=== PATIENT | female | born 1990 | race Caucasian/White ===

== ENCOUNTER 2021-04-03 19:35 | Emergency (ER) | payer MEDICAID, SELFPAY ==
[2021-04-03 19:36] VITALS: BP 120/90; PULSE 104; RESP 18; TEMP 36.3; O2SAT 99; BMI 43.0
[2021-04-03 19:38] VITALS: BP 120/90; PULSE 104; RESP 18; TEMP 36.3; O2SAT 99
--- NOTE | 2021-04-03 20:15 | EX.ED.DYSGE1 ---
HPI History of Present Illness Chief Complaint: Abscess Informant: patient Onset/Context/Timing Onset: Yesterday Context: Gradual Onset Timing: Continuous Quality: Tender swollen area Location: Left perineum Current Severity: Moderate Maximum Severity: Moderate Worsened by: Touching the area Relieved by: leaving it alone Associated Symptoms Associated Symptoms: no systemic symptoms or discharge spontaneously Narrative Narrative: Patient feels like she has another abscess in her perineum that has developed spontaneously. She has had these before in this area. Not a diabetic. No systemic symptoms, fevers, chills. No spontaneous drainage. PFSH PFS Medical History Anxiety Depression Gastritis Home Medications cariprazine [Vraylar] 3 mg PO DAILY 04/03/21 [History Last Taken Unknown] sertraline [Zoloft] 200 mg PO DAILY 04/03/21 [History Last Taken Unknown] sulfamethoxazole-trimethoprim [Bactrim DS] 1 tab PO BID #20 tab 04/03/21 [Rx Last Taken Unknown] Allergy/AdvReac Type Severity Reaction Status Date / Time narcotics AdvReac Other Uncoded 04/03/21 20:07 Social History Smoking Status: Current every day smoker ROS ROS ED Constitutional Constitutional ED: Denies chills or fever(s) Integumentary Reports abscess; Denies rash Neurologic Neurologic: Denies headache(s), paresthesias or weakness EXAM Physical Exam Const Vital Signs: 04/03/21 19:36 04/03/21 19:38 Temperature 97.3 F L 97.3 F L Temperature Source Temporal Temporal Pulse Rate 104 H 104 H Respiratory Rate 18 18 Blood Pressure 120/90 H 120/90 H Blood Pressure Mean 100 100 Pulse Ox 99 99 Oxygen Delivery Method Room Air Room Air Positive well nourished, well developed and obese General Appearance ED: well developed and NAD Nutritional Appearance: obese HEENT Reports moist mucous membranes Negative for trauma Narrative: And perineum there is a 2 cm cutaneous abscess that is pointing and no spontaneous drainage is appreciated. It is very tender and erythematous without surrounding cellulitis. It is close to her labia majora but I do not think it is on it. The exam is limited by obesity. Neuro oriented x3 and CN's II-XII intact bilaterally Sensorium / Orientation: alert Motor Exam: strength 5/5 throughout Psych mental status grossly normal and thought process normal Skin no rashes or lesions noted Skin Narrative: 2 cm cutaneous abscess left perineum MDM MDM MDM Narrative Medical decision making narrative: I&D was performed after verbal consent. Large amount of purulent material was expressed. Patient was started on Bactrim here tonight, and given a prescription. Discussed reasons to return. Procedures Other Procedures Procedure(s): Simple incision and drainage cutaneous abscess, left labia majora: Locally anesthetized with plain 1% lidocaine 9 cc after prepping with isopropanol. Incised centrally with a #11 blade, large amount of purulent material was expressed. The cavity was deloculated 2 separate times, irrigated with saline, and dressed with a clean dry dressing with bacitracin. Tolerated well no complications. Discharge Plan Triage Chief Complaint: Abscess ED Provider: Tucker Lara Dx/Rx/DC Orders Clinical Impression: Abscess of left genital labia Instructions: ED Abscess Incision And Drainage Prescriptions: New sulfamethoxazole-trimethoprim [Bactrim DS] 800-160 mg tablet 1 tab PO BID Qty: 20 RF: 0 No Action sertraline [Zoloft] 100 mg Tablet 200 mg PO DAILY RF: 0 Vraylar 3 mg Capsule 3 mg PO DAILY RF: 0 Primary Care Provider: Goldie Carlos Referrals: Goldie Carlos MD [Primary Care Provider] - 3-5 Days if not improving (Or return to ER if worsening) Disposition Disposition: Home, self care
[2021-04-03] MEDS: Smz/Tmp Ds Tablet 1 TABLET PO (20:24)
[2021-04-03] MEDS: Lidocaine 1% (20 ml mdv) 20 ML Vial INFILT (20:24)
[2021-04-03 22:03] VITALS: O2SAT 98
== END 2021-04-03 22:04 | disposition home or self-care (01) ==
PROVIDERS: Emergency Provider Emergency Medicine; PCP Internal Medicine
DX: N76.4 Abscess of vulva (principal); F41.9 Anxiety disorder, unspecified; F32.9 Major depressive disorder, single episode, unspecified; F17.200 Nicotine dependence, unspecified, uncomplicated; E66.9 Obesity, unspecified; Z79.899 Other long term (current) drug therapy
CPT/HCPCS: 56405; 99284

== ENCOUNTER 2021-05-25 11:38 | Emergency (ER) | payer MEDICAID, SELFPAY ==
[2021-05-25 11:39] VITALS: BP 154/84; PULSE 90; RESP 14; TEMP 35.9; O2SAT 97; BMI 45.7
--- NOTE | 2021-05-25 11:52 | EDS_ITS ---
HPI History of Present Illness Chief Complaint: Lower Extremity Injury Informant: patient Narrative Narrative: 31-year-old female states that yesterday she was helping somebody get baptized and she was going down into the dunk tank. Her left foot slipped on wet front of her and her right leg hyperextended backwards. She notes injury to the right fourth toe and to her thigh. She has been able to bear weight but painfully. [facility] Medical History Anxiety Depression Gastritis Home Medications cariprazine [Vraylar] 3 mg PO DAILY 04/03/21 [History Last Taken Unknown] sertraline [Zoloft] 200 mg PO DAILY 04/03/21 [History Last Taken Unknown] Allergy/AdvReac Type Severity Reaction Status Date / Time narcotics AdvReac Other Uncoded 05/25/21 11:39 Social History (Updated 05/25/21 @ 11:[address] Nav Gold DO) Smoking Status: Current every day smoker tobacco type: cigarettes and e- cigarettes substance use type: does not use ROS ROS ED Constitutional Constitutional ED: Denies chills or weight loss Eyes Eyes: Denies change in vision or diplopia ENT ENT ED: Denies ear pain, rhinorrhea or sore throat Cardiovascular Cardiovascular: Denies chest pain, orthopnea, palpitations or racing heartbeat Respiratory/Chest Respiratory/Chest: Denies cough, dyspnea or orthopnea Gastrointestinal Gastrointestinal: Denies abdominal pain, diarrhea, nausea or vomiting Genitourinary Genitourinary ED: Denies dysuria, hematuria or urinary frequency Musculoskeletal Musculoskeletal: Reports other Details: See history of present illness ; Denies arthralgias or myalgias Integumentary Denies abscess or rash Neurologic Neurologic: Denies headache(s) or weakness Psychiatric Psychiatric: Denies anxiety, depression, suicidal ideation or suicidal thoughts Endocrine Endocrinology: Denies polydipsia, polyphagia or polyuria Allergic/Immunologic Allergic/Immunologic ED: Denies mouth swelling, tongue swelling or urticaria EXAM Physical Exam Const Vital Signs: 05/25/21 11:39 Temperature 96.7 F L Temperature Source Temporal Pulse Rate 90 Respiratory Rate 14 Blood Pressure 154/84 H Blood Pressure Mean 107 Pulse Ox 97 Oxygen Delivery Method Room Air Positive well nourished, well developed and obese General Appearance ED: well developed Nutritional Appearance: obese HEENT Reports normocephalic, head/scalp atraumatic and moist mucous membranes Eyes PERRL and EOMs intact bilaterally Neck no lymphadenopathy, supple and no JVD Resp normal respiratory effort and clear to auscultation bilaterally Cardio regular rate, regular rhythm and no murmurs GI normal to inspection, nondistended, normoactive bowel sounds and non-tender Palpation: soft Back/Spine no CVA tenderness and normal ROM Extremity Extremity Narrative: Patient has swelling and ecchymosis to the right fourth toe . She has tenderness palpation over the anterior thigh musculature. General Extremety ED: Negative for edema General Extremity: Negative for edema Neuro oriented x3 and CN's II-XII intact bilaterally Sensorium / Orientation: alert Motor Exam: strength 5/5 throughout Psych mental status grossly normal Mood & Affect: Negative for depressed or tearful Skin no rashes or lesions noted and no wounds MDM MDM MDM Narrative Medical decision making narrative: My interpretation of the plain films of the right foot is no acute fracture. Radiology concurs. My interpretation of the plain films of the right femur is no acute fracture. At this point patient will be given a postop shoe directions for ice and anti-inflammatories. Follow-up 10 to 14 days if not improved Radiography Diagnostic Testing: Radiology Impression Foot X-Ray 05/25/21 12:05 IMPRESSION: No demonstrated fracture. Electronically Signed: Jesus Nam MD at 12:29 EDT Tel , Service support , Discharge Plan Triage Chief Complaint: Lower Extremity Injury ED Provider: Nav Gold Dx/Rx/DC Orders Clinical Impression: Muscle strain of right thigh, Sprain of toe, fourth, right Prescriptions: No Action sertraline [Zoloft] 100 mg Tablet 200 mg PO DAILY RF: 0 Vraylar 3 mg Capsule 3 mg PO DAILY RF: 0 Primary Care Provider: Goldie Carlos Referrals: Goldie Carlos MD [Primary Care Provider] - 10-14 Days if not better Disposition Disposition: Home, Self Care
--- NOTE | 2021-05-25 12:05 | RAD_ITS ---
STUDY: X-RAY - RIGHT FOOT CLINICAL: Pain, swelling and discoloration of the fourth toe, right foot injury. TECHNIQUE: 3 view(s) of the foot. COMPARISON: None. FINDINGS: Normal talus, calcaneus, and tarsal bones. There is an os trigonum. Normal visualized subtalar, talonavicular, calcaneocuboid, tarsal and tarsometatarsal articulations. Normal metatarsi. Normal metatarsophalangeal joint of the great toe. Normal tibial and fibular sesamoid bones. Normal interphalangeal joint of the great toe. Normal phalanges of the great toe. Normal second through fifth metatarsophalangeal joints. Normal interphalangeal joints and phalanges of the lesser toes. The soft tissue structures are unremarkable. RAD/Foot min 3 Views IMPRESSION: No demonstrated fracture. Electronically Signed: Jesus Nam MD at 12:29 EDT Tel , Service support ,
--- NOTE | 2021-05-25 12:05 | RAD_ITS ---
STUDY: X-RAY - RIGHT FEMUR REASON FOR STUDY: Right mid femur pain, right femur injury from a fall. TECHNIQUE: 2 view(s) of the femur. COMPARISON: None. FINDINGS: Normal visualized femur. Normal visualized soft tissue structure. RAD/Femur Min 2 Views IMPRESSION: No demonstrated right femur fracture. Electronically Signed: Jesus Nam MD at 12:42 EDT Tel , Service support ,
== END 2021-05-25 13:03 | disposition home or self-care (01) ==
PROVIDERS: Emergency Provider Emergency Medicine; PCP Internal Medicine
DX: S76.911A Strain of unspecified muscles, fascia and tendons at thigh level, right thigh, initial encounter (principal); S93.504A Unspecified sprain of right lesser toe(s), initial encounter; F41.9 Anxiety disorder, unspecified; F32.9 Major depressive disorder, single episode, unspecified; F17.210 Nicotine dependence, cigarettes, uncomplicated; E66.9 Obesity, unspecified; Z79.899 Other long term (current) drug therapy; X50.1XXA Overexertion from prolonged static or awkward postures, initial encounter; Y93.89 Activity, other specified; Y92.89 Other specified places as the place of occurrence of the external cause; Y99.8 Other external cause status
CPT/HCPCS: 73552; 73630; 99283

== ENCOUNTER 2021-08-23 20:33 | Observation (INO) | payer MEDICAID, SELFPAY ==
[2021-08-23] VITALS (8 sets, daily range): BP systolic 137–151; BP diastolic 83–91; PULSE 103–129; RESP 16–31; TEMP 36.9; O2SAT 88–94; BMI 43.7
--- NOTE | 2021-08-23 20:59 | EX.ED.VIS.UR ---
HPI HPI - URI History of Present Illness Chief Complaint: Cold Sx Narrative Narrative: 31-year-old female with rhinorrhea, cough, chills, body aches. She denies loss of taste or smell. She states been sick for about 5 days. Patient states she has decreased p.o. intake due to nausea. She also states that when she eats she coughs and has posttussive emesis. She states that her lungs are burning. She denies chest pressure or sharp chest pain. She denies abdominal pain. She does not know if she had a fever because she does not have a thermometer. She does not have any physical health problems but states that she has mental health issues. ROS ROS ED Constitutional Constitutional ED: Reports chills and subjective Eyes Eyes: Denies blurry vision or change in vision ENT ENT ED: Reports rhinorrhea Cardiovascular Cardiovascular: Denies chest pain or palpitations Respiratory/Chest Respiratory/Chest: Reports cough and dyspnea Gastrointestinal Gastrointestinal: Reports nausea and vomiting; Denies abdominal pain or diarrhea Genitourinary Genitourinary ED: Denies dysuria or hematuria Musculoskeletal Musculoskeletal: Reports myalgias; Denies arthralgias or neck pain Integumentary Denies abscess or rash Neurologic Neurologic: Reports headache(s); Denies paresthesias PFSH PFS Medical History Anxiety Depression Gastritis Home Medications cariprazine [Vraylar] 3 mg PO DAILY 04/03/21 [History Last Taken Unknown] sertraline [Zoloft] 200 mg PO DAILY 04/03/21 [History Last Taken Unknown] Allergy/AdvReac Type Severity Reaction Status Date / Time narcotics AdvReac Other Uncoded 08/23/21 20:35 Social History Smoking Status: Current every day smoker tobacco type: cigarettes and e-cigarettes substance use type: does not use EXAM Physical Exam Const Vital Signs: 08/23/21 20:34 08/23/21 20:35 08/23/21 20:49 Temperature 98.4 F 98.4 F Temperature Source Temporal Temporal Pulse Rate 129 H 129 H Respiratory Rate 20 H 20 H Respiratory Effort Normal Non-Labored Respiratory Depth Normal Respiratory Pattern Normal Blood Pressure 137/83 H 137/83 H Blood Pressure Mean 101 101 Pulse Ox 93 93 Oxygen Delivery Method Room Air Room Air Oxygen Flow Rate (L/min) 08/23/21 21:40 08/23/21 22:13 08/23/21 22:20 Temperature Temperature Source Pulse Rate 121 H Respiratory Rate 16 Respiratory Effort Respiratory Depth Respiratory Pattern Normal Blood Pressure Blood Pressure Mean Pulse Ox 88 94 Oxygen Delivery Method Room Air Nasal Cannula Oxygen Flow Rate (L/min) 3 08/23/21 22:51 08/23/21 23:38 Temperature 98.5 F Temperature Source Temporal Pulse Rate 117 H 103 H Respiratory Rate 31 H 22 H Respiratory Effort Respiratory Depth Respiratory Pattern Blood Pressure 140/91 H 151/91 H Blood Pressure Mean 107 111 Pulse Ox 92 93 Oxygen Delivery Method Nasal Cannula Nasal Cannula Oxygen Flow Rate (L/min) 3 3 Positive well nourished General Appearance ED: NAD HEENT normocephalic and atraumatic Eyes PERRL and EOMs intact bilaterally Resp normal respiratory effort and clear to auscultation bilaterally Cardio Rate: tachycardic Rhythm: regular rhythm GI non-tender Palpation: soft Extremity normal to inspection; Negative for full ROM Neuro oriented x3 Sensorium / Orientation: alert Psych mental status grossly normal Skin Lesions: no lesions Rashes: no rashes MDM MDM MDM Narrative Medical decision making narrative: Patient presenting with viral symptoms. She is noted to be tachycardic and tachypneic. She is not wheezing initially but she states she has a history of asthma and was given Solu-Medrol as well as breathing treatments. Following this she felt improved. Subsequently her O2 dropped to 88 on room air and she was placed on 3 L of oxygen. She is currently at 93% on 3 L. CBC is within normal limits. BMP shows an elevated glucose at 384 without anion gap. Her sodium is slightly low because of this. Other electrolytes are normal. AST is 48, ALT 68 other LFTs are normal. Procalcitonin is negative. EKG on my interpretation shows normal sinus rhythm with a ventricular of 128 bpm without sign of ischemic change. Chest x-ray on my interpretation shows right and left pulmonary infiltrates. Right lower lobe is greater than the left. Radiologist does agree. Patient tested negative for Covid I did send a PCR as the patient would prefer to go home. I cannot set her up for home O2 unless her Covid is positive. I did obtain a CTA of the chest which is pending due to radiology downtime and there is a delay in this. Patient physically feels better. She did drop her sats to 88% and is on 3 L. I ambulated on 3 L and she states she feels well and her pulse ox maintains 96%. I feel if her Covid test is positive that she can be discharged home with home O2. She will need to have dexamethasone ordered. If her COVID-19 testing is negative with her pulse ox being low I think she will need to be admitted. CTA of the chest is pending will be signed out to incoming ED physician for follow-up. Impression: 1. Viral syndrome 2. Hypoxia Lab Data Attestation: I reviewed the patient's lab results. Labs: Laboratory Results - last 24 hr 08/23/21 08/23/21 08/23/21 22:00 22:00 22:00 WBC 5.8 RBC 5.13 Hgb 13.7 Hct 44.1 MCV 86.0 MCH 26.7 L MCHC 31.1 L RDW Std Deviation 47.1 H RDW Coeff of Trish 14.8 H Plt Count 204 MPV 11.5 Immature Gran % (Auto) 0.900 Neut % (Auto) 63.0 Lymph % (Auto) 29.9 Morrow % (Auto) 5.7 Eos % (Auto) 0.2 Baso % (Auto) 0.3 Absolute Neuts (auto) 3.6 Absolute Lymphs (auto) 1.72 Nucleated RBC % 0 Sodium 132 L Potassium 3.5 Chloride 100 Carbon Dioxide 23.0 Anion Gap 9 BUN 9 Creatinine 0.68 Estim Creat Clear Calc 132.01 Est GFR (MDRD) Af Amer 131 Est GFR (MDRD) Non-Af 108 BUN/Creatinine Ratio 13.2 Glucose 384 H Calcium 9.0 Total Bilirubin 0.50 AST 48 H ALT 68 H Alkaline Phosphatase 113 Total Protein 8.6 H Albumin 3.2 Globulin 5.4 H Albumin/Globulin Ratio 0.6 L Procalcitonin 0.11 H Radiography Diagnostic Testing: Radiology Impression Chest X-Ray 08/23/21 22:12 IMPRESSION: Right lower lobe greater than left infiltrates. Possible right paramediastinal soft tissue density suggesting lymphadenopathy thyroid enlargement or vascular ectasia. Electronically Signed: Jasmyn Acosta MD at 0:27 EDT Tel , Service support , Discharge Plan Triage Chief Complaint: Cold Sx ED Provider: Ovidio Mcmullen Dx/Rx/DC Orders Prescriptions: No Action sertraline [Zoloft] 100 mg Tablet 200 mg PO DAILY RF: 0 Vraylar 3 mg Capsule 3 mg PO DAILY RF: 0 Primary Care Provider: Goldie Carlos
[2021-08-23] MEDS: Ondansetron ODT 4 MG Tablet PO (21:12)
--- NOTE | 2021-08-23 21:27 | EKG12_ITS ---
Test Reason : SOB Blood Pressure : / mmHG Vent. Rate : 128 BPM Atrial Rate : 128 BPM P-R Int : 112 ms QRS Dur : 080 ms QT Int : 408 ms P-R-T Axes : 000 002 041 degrees QTc Int : 595 ms Sinus tachycardia Inferior infarct , age undetermined Anterior infarct , age undetermined Abnormal ECG Confirmed by ALEXANDER MEHTA, CRISTOBAL ([id number]), senior editor CHIQUITA DOLAN ([id number]) on 08/26/2021 10:10:09 AM Referred By: REGGIE Confirmed By:CRISTOBAL MUNOZ MD
--- NOTE | 2021-08-23 21:34 | ED.RN ---
NO OLD EKGS ON FILE
[2021-08-23] MEDS: Ipratropium/Albuterol Sulfate 3 ML AMPUL.NEB INHALATION (21:38)
[2021-08-23] MEDS: Albuterol 2.5 MG/3 ML VIAL.NEB. INHALATION (21:38)
[2021-08-23 22:10] LABS: Absolute Lymphocyte Count 1.72 X10^3/uL (0.83-4.51); Absolute Neutrophil Count 3.6 X10^3/uL (2.0-7.7); Basophil# 0.02 X10^3/uL; Basophil% 0.3 % (0-1); Eosinophil# 0.01 X10^3/uL; Eosinophils% 0.2 % (0-5); Hematocrit 44.1 % (37-47); Hemoglobin 13.7 g/dL (12.0-15.0); Lymphocyte # 1.72 X10^3/ul (0.83-4.51); Lymphocyte % 29.9 % (19-41); Mean Corp Hgb Conc 31.1 g/dL (32-36); Mean Corpuscular Hgb 26.7 pg (27.0-32.0); Mean Platelet Vol. 11.5 fl (6.2-12.0); Monocyte# 0.33 X10^3/uL; Monocyte% 5.7 % (0-10); NRBC Flagged by Analyzer 0 % (0-5); Neutrophil # 3.63 X10^3/uL (2.7-7.7); Platelet Count 204 K/mm3 (150-450); RBC Distribution Width CV 14.8 % (11.6-14.6); RBC Distribution Width SD 47.1 fl (35.1-43.9); Red Blood Count 5.13 M/mm3 (4.2-5.4); White Blood Count 5.8 K/mm3 (4.4-11.0)
[2021-08-23] MEDS: MethylPREDNISolone 125 MG/2 ML Vial IV (22:12)
--- NOTE | 2021-08-23 22:12 | RAD_ITS ---
STUDY: X-RAY CHEST REASON FOR EXAM: Female, 31 years old. Cough TECHNIQUE: Single AP portable view of the chest. COMPARISON: None. FINDINGS: There is a right patchy right lower lobe infiltrate. There is increased density in the left lingula. There is no demonstrated pleural abnormality. Normal size heart. Right paramediastinal soft tissue density. Normal visualized pulmonary arteries. Normal visualized aortic arch and descending thoracic aorta. Normal visualized thoracic spine. Normal visualized ribs, clavicles, and shoulders. There is no demonstrated abnormality of the visualized soft tissue structures of the upper abdomen. RAD/Chest 1 View (Portable) IMPRESSION: Right lower lobe greater than left infiltrates. Possible right paramediastinal soft tissue density suggesting lymphadenopathy thyroid enlargement or vascular ectasia. Electronically Signed: Jasmyn Acosta MD at 0:27 EDT Tel , Service support ,
[2021-08-23 22:28] LABS: ALB/GLOB Ratio 0.6 RATIO (0.9-2.4); AST(SGOT) 48 U/L (15-37); Alanine Aminotransfer ALT/SGPT 68 U/L (13-56); Albumin, Serum 3.2 g/dL (3.2-5.0); Alkaline Phosphatase 113 U/L (45-117); Anion Gap 9 (5-15); BUN 9 mg/dL (7-18); BUN/Creat Ratio 13.2 RATIO (10-20); Chloride 100 mmol/L (98-107); Creatinine, Serum 0.68 mg/dL (0.55-1.02); EST Glomerular Filtration Rate 108 mL/min (>60); Est Glom Filt Rate - Afr Amer 131 mL/min (>60); Estimated Creatinine Clearance 132.01 ml/min; Globulin 5.4 g/dL (2.2-4.2); Glucose 384 mg/dL (74-106); Potassium 3.5 mmol/L (3.5-5.1); Protein, Total 8.6 g/dL (6.4-8.2); Sodium Level 132 mmol/L (136-145)
[2021-08-23 22:35] LABS: Procalcitonin 0.11 ng/mL (0.00-0.09)
--- NOTE | 2021-08-23 22:57 | CT_ITS ---
STUDY: CTA CHEST REASON FOR EXAM: Female, 31 years old. HYPOXIA RADIATION DOSAGE (If Supplied By Facility): CTDIvol = ( 22.17 ) mGy, DLP = ( 489.09 ) mGycm TECHNIQUE: The examination was performed with the intravenous administration of IV 100mL [id number]-370. Post-processing of the angiographic images was performed, with multiplanar reformation and 3D reconstruction. Individualized dose optimization techniques were used for this CT. COMPARISON: August 23, 2021 chest x-ray FINDINGS: Normal enhancement of the main pulmonary artery and right and left pulmonary arteries. There is limited enhancement of the bilateral peripheral pulmonary arteries. There is no visualized pulmonary embolism. Normal thoracic aorta and visualized great vessels. There is no demonstrated aortic dissection. There are subcentimeter mediastinal reactive lymph nodes. There is a right-sided prominence of the paramediastinal fat. There is a reactive lymph node measuring 1.8 x 0.8 cm. There is also vascular ectasia. Normal hilar regions. Normal visualized trachea and bronchi. There are multifocal patchy groundglass opacities. There is predominance in the right lower lobe and left lingula. Normal pleura. Normal chest wall structures. There are degenerative changes of thoracic spine. The liver is enlarged and fatty infiltrated. The spleen measures 19.2 by partially visualized 11.[address]/CTA Chest W/WO Contrast IMPRESSION: No visualized pulmonary embolism limited contrast bolus to evaluate the distal vessels. Could consider short-term interval follow-up study if appropriate Multifocal pneumonia pattern typical of Covid pneumonia. Severe splenomegaly. Hepatomegaly hepatic steatosis. Electronically Signed: Jasmyn Acosta MD at 5:16 EDT Tel , Service support ,
[2021-08-24 04:11] VITALS: BP 135/88; PULSE 98; RESP 16; O2SAT 98
--- NOTE | 2021-08-24 05:30 | HP.PCM.HOS_ITS ---
HPI - General General Date of Admission: 08/24/21 Date of Service: 08/24/21 HPI Narrative The patient is a 31 y/o F w/ PMHx: Morbid Obesity, Anxiety and Depression, GERD, Tobacco use who presents to the [facility] ED on 08/24/21 with history of onset of fatigue, malaise, fever, chills, headache, sore throat, congestion, rhinorrhea, body aches, nausea, emesis with no diarrhea or abdominal discomfort, poor oral intake, cough and progressively worsening dyspnea x6 days prompting eventual ED presentation. Patient is unvaccinated. She is currently living out of her car an d homeless. Work-up in the ED included T 98.4, heart rate initially 129 with improvement now to 98, BP 137/83, respiratory rate 20-31, 88% on room air with improvement to 93% on 3 L nasal cannula, CBC with WBC 5.8, hemoglobin 13.7, platelet 204 without marked shift, CMP with sodium 132, glucose 384, AST/ALT 48/68, procalcitonin 0.11, negative Covid antigen rapid however Covid PCR detected, chest x-ray with right lower lobe greater than left lower lobe infiltrates, possible right paramediastinal soft tissue density suggestive of lymphadenopathy, thyroid enlargement or vascular ectasia, follow-up CTPA with no visualized pulmonary embolism however limited contrast bolus to evaluate distal vessels, multifocal pneumonia consistent with Covid pneumonia, severe splenomegaly, hepatomegaly with hepatic steatosis. In the ED patient ministered Zofran, albuterol, DuoNeb therapy as well as Solu-Medrol [facility] Medical History Anxiety Depression Gastritis Tobacco use Home Medications cariprazine [Vraylar] 3 mg PO DAILY 04/03/21 [History Last Taken Unknown] sertraline [Zoloft] 200 mg PO DAILY 04/03/21 [History Last Taken Unknown] Allergy/AdvReac Type Severity Reaction Status Date / Time narcotics AdvReac Other Uncoded 08/23/21 20:35 Family History (Updated 08/24/21 @ 06:[address] Maeve Solo MD) Mother Heart disease Hypertension Father Diabetes Surgical History (Updated 08/24/21 @ 06:[address] Maeve Solo MD) No significant past surgical history no surgical history Social History (Updated 08/24/21 @ 06:[address] Maeve Solo MD) housing: homeless Smoking Status: Current every day smoker tobacco type: cigarettes Smoking packs per day: 0.5 Smoking cigarettes per day: 10.0 and e-cigarettes how long ago did patient quit smoking: Patient has been smoking ~ 1/2 ppd since she was a teen. alcohol intake: never substance use type: does not use ROS ROS Narrative Admission Review of Systems: CONSTITUTIONAL: No weight loss, + fever, chills, weakness or fatigue. HEENT: + CAAL, congestion, rhinorrhea, sore throat. Eyes: No visual loss, blurred vision, double vision or yellow sclerae. Ears, Nose, Throat: No hearing loss, sneezing. SKIN: No rash or itching, lesions, wounds. CARDIOVASCULAR: No chest pain, chest pressure or chest discomfort, palpitations, edema, orthopnea, syncopal events. RESPIRATORY:+ shortness of breath, cough without marked sputum, No wheezing, hemoptysis. GASTROINTESTINAL: + anorexia, nausea, vomiting, No diarrhea, abdominal pain, melena, BRBPR. GENITOURINARY: No dysuria, frequency, urgency or retention. NEUROLOGICAL: + headache, No dizziness, syncope, paralysis, ataxia, numbness or tingling in the extremities, focal weakness, change in bowel or bladder control, seizure. MUSCULOSKELETAL: + muscle, back pain, joint pain or stiffness. HEMATOLOGIC: No anemia, bleeding or bruising. LYMPHATICS: No enlarged nodes. No history of splenectomy. PSYCHIATRIC: + history of depression or anxiety. ENDOCRINOLOGIC: No reports of sweating, cold or heat intolerance. No polyuria or polydipsia. ALLERGIES: No history of asthma, hives, eczema or rhinitis. Vital Signs Vital Signs Vital Signs: 08/23/21 20:34 08/23/21 20:35 08/23/21 20:49 Temperature 98.4 F 98.4 F Temperature Source Temporal Temporal Pulse Rate 129 H 129 H Respiratory Rate 20 H 20 H Respiratory Effort Normal Non-Labored Respiratory Depth Normal Respiratory Pattern Normal Blood Pressure 137/83 H 137/83 H Blood Pressure Mean 101 101 Pulse Ox 93 93 Oxygen Delivery Method Room Air Room Air Oxygen Flow Rate (L/min) 08/23/21 21:40 08/23/21 22:13 08/23/21 22:20 Temperature Temperature Source Pulse Rate 121 H Respiratory Rate 16 Respiratory Effort Respiratory Depth Respiratory Pattern Normal Blood Pressure Blood Pressure Mean Pulse Ox 88 94 Oxygen Delivery Method Room Air Nasal Cannula Oxygen Flow Rate (L/min) 3 08/23/21 22:51 08/23/21 23:38 08/24/21 04:11 Temperature 98.5 F Temperature Source Temporal Pulse Rate 117 H 103 H 98 Respiratory Rate 31 H 22 H 16 Respiratory Effort Respiratory Depth Respiratory Pattern Blood Pressure 140/91 H 151/91 H 135/88 H Blood Pressure Mean 107 111 103 Pulse Ox 92 93 98 Oxygen Delivery Method Nasal Cannula Nasal Cannula Oxygen Flow Rate (L/min) 3 3 Weight Weight: 305 lb Body Mass Index (BMI) 43.7 Physical Exam Narrative Physical Examination: General: Awake, alert, oriented x 3 and cooperative, laying in the ED bed, fatigued, ill-appearing. Skin: Normal color, normal turgor, no icterus, no cyanosis. HEENT: AT/NC, EOMI, PERRLA, mildly dry MM, no carotid bruits or JVD noted. Lungs: Diffusely diminished breath sounds, greater bases, moderate effort, no rales, ronchi or wheezing. Heart: Tachycardic with regular rhythm; no gallop, rub audible. Abdomen: Soft, morbidly obese, NTTP, ND, distant mildly hyperactive BS, no obvious evidence of HSM however habitus makes examination very difficult as noted splenomegaly and hepatomegaly on imaging. Extremities: No cyanosis, clubbing, or edema. Neurological: Patient awake, alert, oriented as noted, cognitive function intact; pupils equally reactive to light and accommodation, cranial nerves II- XII grossly normal, moving all 4 extremities, no focal deficits, strength moderately global decrease secondary to acute presentation. Psychiatric: Affect appears fatigued, ill-appearing, no acute evidence of depressive or anxiety feelings. Results Lab / Micro Data Result Diagrams: 08/23/21 22:00 08/23/21 22:00 Labs: Laboratory Results - last 24 hr 08/23/21 22:00: WBC 5.8, RBC 5.13, Hgb 13.7, Hct 44.1, MCV 86.0, MCH 26.7 L, MCHC 31.1 L, RDW Std Deviation 47.1 H, RDW Coeff of Trish 14.8 H, Plt Count 204, MPV 11.5, Immature Gran % (Auto) 0.900, Neut % (Auto) 63.0, Lymph % (Auto) 29.9, [place]k % (Auto) 5.7, Eos % (Auto) 0.2, Baso % (Auto) 0.3, Absolute Neuts (auto) 3.6, Absolute Lymphs (auto) 1.72, Nucleated RBC % 0 08/23/21 22:00: Sodium 132 L, Potassium 3.5, Chloride 100, Carbon Dioxide 23.0, Anion Gap 9, BUN 9, Creatinine 0.68, Estim Creat Clear Calc 132.01, Est GFR (MDRD) Af Amer 131, Est GFR (MDRD) Non-Af 108, BUN/Creatinine Ratio 13.2, Glucose 384 H, Calcium 9.0, Total Bilirubin 0.50, AST 48 H, ALT 68 H, Alkaline Phosphatase 113, Total Protein 8.6 H, Albumin 3.2, Globulin 5.4 H, Albumin/Globulin Ratio 0.6 L 08/23/21 22:00: Procalcitonin 0.11 H 08/23/21 23:35: COVID-19 ([facility]) Detected Micro: Microbiology 08/23/21 21:00 Nasal Secretion SARS-CoV-2 Antigen (Rapid) - Final Radiology Impression Chest X-Ray 08/23/21 22:12 IMPRESSION: Right lower lobe greater than left infiltrates. Possible right paramediastinal soft tissue density suggesting lymphadenopathy thyroid enlargement or vascular ectasia. Electronically Signed: Jasmyn Acosta MD at 0:27 EDT Tel , Service support , Chest CTA 08/23/21 22:57 IMPRESSION: No visualized pulmonary embolism limited contrast bolus to evaluate the distal vessels. Could consider short-term interval follow-up study if appropriate Multifocal pneumonia pattern typical of Covid pneumonia. Severe splenomegaly. Hepatomegaly hepatic steatosis. Electronically Signed: Jasmyn Acosta MD at 5:16 EDT Tel , Service support , Assessment & Plan Assessment/Plan (1) Pneumonia due to COVID-19 virus: (2) Hypoxia: PLAN: The patient is a 31 y/o F w/ PMHx: Morbid Obesity, Anxiety and Depression, GERD, Tobacco use who presents to the [facility] ED on 08/24/21 with history of onset of fatigue, malaise, cough, dyspnea, congestion, rhinorrhea, fever, chills, body aches, nausea with poor intake x 6 days prompting eventual ED evaluation. 1. Acute Hypoxia secondary to Acute Bilateral Pneumonia secondary to Acute Viral Syndrome, COVID-19 with suspected associated Splenomegaly and Hepatomegaly: Will admit to the medical surgical floor, maintain on telemetry, maintain on Covid precautions, will maintain on oxygen with wean as tolerated to room air, PRN albuterol, HOB, IS parameters w/ pending sputum cultures, respiratory viral panel and urine antigens, will obtain D-dimer, troponin x1, CRP, CPK, Ferritin, LDH, trop and BNP, continue supportive care including q 2 ho ur turning including prone given no prone bed availability and judicious hydration, closely monitor for worsening status for ARDS and multiorgan failure, will initiate and continue IV decadron x 10 doses, given presentation will also initiate IV remdesivir but defer to discretion of Infectious disease. 2. Anxiety and depression: We will continue patient home sertraline and cariprazine regimen. 3. Morbid Obesity: Weight loss and lifestyle changes encouraged. 4. Tobacco Abuse: Encouraged cessation, inpatient consultation per RT, NR if desired. 5. GERD: We will maintain on famotidine. 6. DVT prophylaxis: SCDs, Lovenox. 7. CODE STATUS: Full code. Charges/Coding Visit Charges Inpatient E&M: 54477 Init Hosp L3
[2021-08-24 06:19] VITALS: BP 136/78; PULSE 112; RESP 18; TEMP 36.1; O2SAT 96
--- NOTE | 2021-08-24 06:29 | PCS.PANDOC ---
PANDEMIC DOCUMENTATION INITIATED: Date: 07/13/2021 Time: 190
[2021-08-24 06:41] VITALS: O2SAT 97
[2021-08-24 06:58] VITALS: BP 144/102; PULSE 87; RESP 18; TEMP 36.6; O2SAT 97
[2021-08-24 07:02] VITALS: BMI 41.3
[2021-08-24 08:23] VITALS: BP 131/86; PULSE 100; RESP 18; TEMP 37; O2SAT 97
--- NOTE | 2021-08-24 08:37 | NURSING ---
Pt in bed eating and talking on phone with her boyfriend. She is saying that she wants to leave that the only reason she was admitted was for oxygen and she is feeling better. She states her boyfriend now has a place for them to stay at his cousins house show is a truck driver salesperson and is gone most of the time. She is not concerned that she can transmit Covid 19 to her boyfriend who is also non vaccinated. She is tearful l and saying she was not aware that she needs the full treatment for this and be here for days. She says her boyfriend will take her to [facility] for this treatment. She is wanting to leave AMA. She was also notified that if not treated she will get worse. Hospitalist notified.
[2021-08-24 08:59] LABS: BNP,B-Type NATRIURETIC PEPTIDE 6.7 pg/mL (0-100)
[2021-08-24 09:00] LABS: Ferritin 128 ng/mL (8-252); LDH 237 U/L (84-246); Troponin-I HS 4 pg/mL (3.0-54.0)
[2021-08-24 09:03] LABS: D-Dimer Quantitative (DVT/PE) 1.79 FEU/ug/m (0.27-0.49)
--- NOTE | 2021-08-24 09:14 | PCM.DC.SUM ---
Providers Date of Admission: 08/24/21 Primary Care Physician: Dr. Goldie Carlos MD Reason For Visit: COVID PNA, HYPOXIA Diagnosis Discharge Diagnosis (1) Pneumonia due to COVID-19 virus: Status: Acute Code(s): U07.1 - COVID-19; J12.82 - Pneumonia due to coronavirus disease 2019 (2) Hypoxia: Status: Acute Code(s): R09.02 - Hypoxemia Medications at Discharge Home Medications cariprazine [Vraylar] 3 mg PO DAILY 04/03/21 sertraline [Zoloft] 200 mg PO DAILY 04/03/21 omeprazole 40 mg PO DAILY 08/24/21 Hospital Course Operations None Procedures None Summary of Care Provided Minutes Spent on Discharge: 10 Hospital Course: Ms. Moore is a 31-year-old white female who presented to the emergency department [facility] early this morning with complaints of fatigue, malaise, fever, chills, headache, sore throat, congestion, rhinorrhea, body aches, nausea, vomiting, poor oral intake, cough and progressively worsening shortness of breath x6 days which eventually prompted ED evaluation. She has not been vaccinated for Covid. On admission she was living out of her car and homeless. She was hypoxic in the emergency department and required 3 L nasal cannula to maintain sats greater than 92%. Her Covid rapid antigen was negative however her PCR was positive. CTA of her chest showed no PE but multifocal patchy bilateral infiltrates consistent with viral pneumonia, severe splenomegaly, and hepatomegaly with hepatic steatosis. She was admitted to the medical floor with hypoxic respiratory failure secondary to Covid pneumonia and started on remdesivir and Decadron. Approximately 4 hours after admission the patient decided to leave AGAINST MEDICAL ADVICE and signed paperwork and left the hospital. Discharge diagnoses: Acute hypoxic respiratory failure secondary to COVID-19 pneumonia Hyponatremia Hyperglycemia Transaminitis Splenomegaly Hepatomegaly Hepatic steatosis Morbid obesity Depression Anxiety Weight / BMI Weight Weight: 130.816 kg Body Mass Index (BMI) 41.3 ABG / Lab / Microbiology Data Result Diagrams: 08/23/21 22:00 08/23/21 22:00 Laboratory: Laboratory Results - last 24 hr 08/23/21 22:00: WBC 5.8, RBC 5.13, Hgb 13.7, Hct 44.1, MCV 86.0, MCH 26.7 L, MCHC 31.1 L, RDW Std Deviation 47.1 H, RDW Coeff of Trish 14.8 H, Plt Count 204, MPV 11.5, Immature Gran % (Auto) 0.900, Neut % (Auto) 63.0, Lymph % (Auto) 29.9, Cooper % (Auto) 5.7, Eos % (Auto) 0.2, Baso % (Auto) 0.3, Absolute Neuts (auto) 3.6, Absolute Lymphs (auto) 1.72, Nucleated RBC % 0 08/23/21 22:00: Sodium 132 L, Potassium 3.5, Chloride 100, Carbon Dioxide 23.0, Anion Gap 9, BUN 9, Creatinine 0.68, Estim Creat Clear Calc 132.01, Est GFR (MDRD) Af Amer 131, Est GFR (MDRD) Non-Af 108, BUN/Creatinine Ratio 13.2, Glucose 384 H, Calcium 9.0, Total Bilirubin 0.50, AST 48 H, ALT 68 H, Alkaline Phosphatase 113, Total Protein 8.6 H, Albumin 3.2, Globulin 5.4 H, Albumin/Globulin Ratio 0.6 L 08/23/21 22:00: Procalcitonin 0.11 H 08/23/21 23:35: COVID-19 ([facility]) Detected 08/24/21 07:50: D-Dimer Quant (PE/DVT) 1.79 H* 08/24/21 07:58: Ferritin 128, Lactate Dehydrogenase 237, Troponin I High Sens 4, C-React Prot Ext Range 40.00 H 08/24/21 07:58: B-Natriuretic Peptide 6.7 Microbiology: Microbiology 08/24/21 07:15 Urine, Clean Catch Legionella Antigen - Final 08/24/21 07:15 Urine, Clean Catch Streptococcus pneumoniae Antigen (M - Final 08/23/21 21:00 Nasal Secretion SARS-CoV-2 Antigen (Rapid) - Final Radiography Diagnostic Testing: Radiology Impression Chest X-Ray 08/23/21 22:12 IMPRESSION: Right lower lobe greater than left infiltrates. Possible right paramediastinal soft tissue density suggesting lymphadenopathy thyroid enlargement or vascular ectasia. Electronically Signed: Jasmyn Acosta MD at 0:27 EDT Tel , Service support , Chest CTA 08/23/21 22:57 IMPRESSION: No visualized pulmonary embolism limited contrast bolus to evaluate the distal vessels. Could consider short-term interval follow-up study if appropriate Multifocal pneumonia pattern typical of Covid pneumonia. Severe splenomegaly. Hepatomegaly hepatic steatosis. Electronically Signed: Jasmyn Acosta MD at 5:16 EDT Tel , Service support , Meaningful Use Info Meaningful Use Diagnoses (Choose all that apply): None applicable Discharge Plan Admission Admit Date/Time: 08/24/21 05:42 Attending Provider: Dhara Smith Primary Care Provider: Goldie Carlos Discharge Orders/Prescriptions Prescriptions: No Action sertraline [Zoloft] 100 mg Tablet 200 mg PO DAILY RF: 0 Vraylar 3 mg Capsule 3 mg PO DAILY RF: 0 omeprazole 40 mg capsule,delayed release(DR/EC) 40 mg PO DAILY RF: 0 Referrals / Follow Up: Goldie Carlos MD [Primary Care Provider] -
== END 2021-08-24 09:15 | disposition left against medical advice (07) ==
LOC: ED 08-24 05:24 → MS3 08-24 07:30
PROVIDERS: Student in an Organized Health Care Education/Training Program; Admitting Provider Family Medicine; Emergency Provider Emergency Medicine; PCP Internal Medicine; Visit Provider Internal Medicine
DX: U07.1 COVID-19 (principal); J12.82 Pneumonia due to coronavirus disease 2019; J96.01 Acute respiratory failure with hypoxia; F41.9 Anxiety disorder, unspecified; F32.9 Major depressive disorder, single episode, unspecified; Z79.899 Other long term (current) drug therapy; F17.210 Nicotine dependence, cigarettes, uncomplicated; R73.9 Hyperglycemia, unspecified; Z68.41 Body mass index [BMI] 40.0-44.9, adult; E66.01 Morbid (severe) obesity due to excess calories; Z59.0 Homelessness; K21.9 Gastro-esophageal reflux disease without esophagitis; E87.1 Hypo-osmolality and hyponatremia; R16.2 Hepatomegaly with splenomegaly, not elsewhere classified; K76.0 Fatty (change of) liver, not elsewhere classified; R74.01 Elevation of levels of liver transaminase levels
CPT/HCPCS: 36415; 71045; 71275; 80053; 82728; 83615; 83880; 84145; 84484; 85025; 85379; 86140; 87426; 87449; 87635; 93005; 94640; 96374; 99218; 99285; Q9967; U0005; A4216; G0378; U0003

== ENCOUNTER 2023-05-06 08:43 | Emergency (ER) | payer MEDICAID, SELFPAY ==
[2023-05-06 08:44] VITALS: BP 139/97; PULSE 109; RESP 18; TEMP 36.6; O2SAT 97; BMI 45.8
--- NOTE | 2023-05-06 09:04 | EX.ED.DYSGE1 ---
HPI History of Present Illness Chief Complaint: Hyperglycemia Informant: patient Narrative Narrative: Patient diagnosed with diabetes about 7 or 8 months ago, placed on pills as well as Lantus at night. She has been having urinary frequency for at least 4 days or so, but no other symptoms. This morning she ate a large bowl of sugary cereal, she did a routine blood sugar check and it read high so she presents for that reason. [facility] Medical History (Updated 05/06/23 @ 09:[address] Tucker Lara MD) Anxiety Depression Gastritis Tobacco use Type 2 diabetes mellitus Home Medications cariprazine 3 mg capsule (Vraylar) 3 mg PO DAILY anxiety 04/03/21 [History Last Taken 08/23/21 3 mg] sertraline 100 mg tablet (Zoloft) 200 mg PO DAILY anxiety 04/03/21 [History Last Taken 08/23/21 200 mg] omeprazole 40 mg capsule,delayed release 40 mg PO DAILY gastritis 08/24/21 [History Last Taken 08/23/21 40 mg] sulfamethoxazole 800 mg-trimethoprim 160 mg tablet 1 tab PO BID #6 TABLETS 05/06/23 [Rx Last Taken Unknown] Allergy/AdvReac Type Severity Reaction Status Date / Time Opioids - Morphine Analogues AdvReac ADDICTION, Verified 05/06/23 08:44 [narcotics] IN RECOVERY Family History (Updated 08/24/21 @ 06:[address] Maeve Solo MD) Mother Heart disease Hypertension Father Diabetes Surgical History No significant past surgical history Social History housing: homeless Smoking Status: Current every day smoker tobacco type: cigarettes and e-cigarettes how long ago did patient quit smoking: Patient has been smoking ~ 1/2 ppd since she was a teen. alcohol intake: never substance use type: does not use ROS ROS ED Constitutional Constitutional ED: Denies chills or fever(s) Eyes Eyes: Denies change in vision or diplopia ENT ENT ED: Denies rhinorrhea or sore throat Cardiovascular Cardiovascular: Denies chest pain or palpitations Respiratory/Chest Respiratory/Chest: Denies cough or dyspnea Gastrointestinal Gastrointestinal: Denies abdominal pain, diarrhea, nausea or vomiting Genitourinary Genitourinary ED: Reports urinary frequency; Denies dysuria or hematuria Musculoskeletal Musculoskeletal: Denies back pain or neck pain Integumentary Denies abscess or rash Neurologic Neurologic: Denies headache(s), paresthesias or weakness Psychiatric Psychiatric: Denies anxiety or suicidal thoughts EXAM Physical Exam Const Vital Signs: 05/06/23 08:44 Temperature 98 F Temperature Source Temporal Pulse Rate 109 H Respiratory Rate 18 Blood Pressure 139/97 H Blood Pressure Mean 111 Pulse Ox 97 Oxygen Delivery Method Room Air Positive well nourished, well developed and obese Constitutional Narrative: Well-appearing in no distress General Appearance ED: well developed and NAD Nutritional Appearance: obese HEENT Reports moist mucous membranes normocephalic and atraumatic Eyes PERRL and EOMs intact bilaterally Neck full ROM and supple Resp normal respiratory effort and clear to auscultation bilaterally Cardio regular rate, regular rhythm and no murmurs GI non-tender and non-distended Auscultation: normoactive bowel sounds Palpation: soft Back/Spine no CVA tenderness General Back: other FROM Extremity normal to inspection General Extremety ED: Negative for edema, pulses abnormal or tenderness General Extremity: Negative for edema or pulses abnormal Neuro oriented x3, CN's II-XII intact bilaterally and no sensory deficits noted Sensorium / Orientation: awake and alert Motor Exam: strength 5/5 throughout Skin no rashes or lesions noted and no wounds MDM MDM MDM Narrative Medical decision making narrative: Urinalysis shows glycosuria, however also shows significant indication of infection/pyuria. This might be additional cause of her hyperglycemia in addition to her diet which we discussed. I will treat this with a 3-day course of Bactrim advised to follow-up if things do not improve and advised to monitor her blood sugars, which we got under control with a dose of insulin here. She appears hydrated I do not think she needs IV fluids. Lab Data Attestation: I reviewed the patient's lab results. Labs: Laboratory Results - last 24 hr 05/06/23 05/06/23 05/06/23 08:50 09:01 10:14 Urine Color Yellow Urine Clarity Sl. Cloudy Urine pH 6.0 Ur Specific [place] 1.015 Urine Protein 15 H Urine Glucose (UA) 1000 H Urine Ketones Negative Urine Occult Blood 10 H Urine Nitrite Positive H Urine Bilirubin Negative Urine Urobilinogen Normal Ur Leukocyte Esterase 500 H Urine RBC 0-5 SEEN Urine WBC 25-50 SEEN Ur Squamous Epith Cells 0-5 SEEN Urine Bacteria 3+ Urine Mucus 0 SEEN POC Glucose 343 H 209 H Discharge Plan Triage Chief Complaint: Hyperglycemia ED Provider: Tucker Lara Dx/Rx/DC Orders Clinical Impression: Acute cystitis without hematuria, Type 2 diabetes mellitus with hyperglycemia Instructions: ED Diabetic Hyperglycemia Prescriptions: New sulfamethoxazole-trimethoprim [sulfamethoxazole-trimethoprim] 800-160 mg tablet 1 tab PO BID Qty: 6 0RF No Action sertraline [Zoloft] 100 mg Tablet 200 mg PO DAILY Vraylar 3 mg Capsule 3 mg PO DAILY omeprazole 40 mg capsule,delayed release(DR/EC) 40 mg PO DAILY Primary Care Provider: Care Physician,No Primary Referrals: Goldie Carlos MD [Non-Staff] - 3-5 Days if not improving Disposition Disposition: Home, Self Care Discharge Date/Time: 05/06/23 10:36
[2023-05-06 09:06] LABS: Mucous, Urine 0 SEEN /hpf (<or=2+)
[2023-05-06] MEDS: Insulin Lispro 100 UNIT/ML INSULN.PEN 14 UNIT SC (09:06)
[2023-05-06 09:08] LABS: Bedside Glucose 343 mg/dL (74-106)
[2023-05-06 09:10] LABS: Color, Urine Yellow (Yellow); Glucose, Dipstick 1000 mg/dl (Normal); Ketone-Dipstick Negative (Negative); Leukocyte Esterase-Dipstick 500 /ul (Negative); Nitrite-Dipstick Positive (Negative); Occult Blood-Urine 10 /ul (Negative); Protein-Dipstick 15 mg/dl (Negative); Specific Gravity, Urine 1.015 (1.002-1.030); Urine Bilirubin Dipstick Negative (Negative); Urine Clarity Sl. Cloudy (Clear); Urine Urobilinogen Normal (Normal)
[2023-05-06 09:16] LABS: Bacteria 3+ /hpf (None Seen); Red Blood Cells-Urine 0-5 SEEN /hpf (0-5); Squamous Epithelial Cells - UA 0-5 SEEN /hpf (5-10); White Blood Cells 25-50 SEEN /hpf (0-5)
[2023-05-06] MEDS: Smz/Tmp Ds Tablet 1 TABLET PO (10:32)
[2023-05-06 10:33] LABS: Bedside Glucose 209 mg/dL (74-106)
== END 2023-05-06 10:36 | disposition home or self-care (01) ==
LOC: ED 09:42
PROVIDERS: Emergency Provider Emergency Medicine; Visit Provider Emergency Medicine
DX: N30.00 Acute cystitis without hematuria (principal); E11.65 Type 2 diabetes mellitus with hyperglycemia; F17.210 Nicotine dependence, cigarettes, uncomplicated; R82.81 Pyuria; R81 Glycosuria; R35.0 Frequency of micturition; Z79.84 Long term (current) use of oral hypoglycemic drugs; F17.290 Nicotine dependence, other tobacco product, uncomplicated; E66.9 Obesity, unspecified
CPT/HCPCS: 81001; 82962; 99281